=== PATIENT | female | born 1990 | race African-American/Black ===

== ENCOUNTER 2016-08-13 11:05 | Inpatient (IN) | payer OTHER ==
[2016-08-13] MEDS ORDERED: PROMETHAZINE HCL 25 MG/1 ML VIAL IVPB ONE ×2 (11:35→16:15)
[2016-08-13] MEDS ORDERED: DEXTROSE 5%-LACTATED RINGERS 1,000 ML IV SCH (11:35)
[2016-08-13] MEDS ORDERED: BUTORPHANOL TARTRATE 1 MG/ML VIAL IVPB ONE ×4 (11:35→16:15)
[2016-08-13 12:35] LABS: URINE APPEARANCE CLEAR; URINE BILIRUBIN NEGATIVE (NEGATIVE); URINE BLOOD NEGATIVE (NEGATIVE); URINE COLOR LTYELLOW; URINE GLUCOSE (UA) NEGATIVE (NEGATIVE); URINE KETONE NEGATIVE (NEGATIVE); URINE NITRITE NEGATIVE (NEGATIVE); URINE PROTEIN NEGATIVE (NEGATIVE); URINE UROBILINOGEN NEGATIVE E.U./dl (0.2-1.0)
[2016-08-13 12:37] LABS: URINE LEUK ESTERASE 2+ (NEGATIVE)
[2016-08-13 12:38] LABS: URINE BACTERIA RARE /hpf (NONE SEEN); URINE RBC 2 /hpf (0-3); URINE WBC 12 /hpf (3-5)
[2016-08-13 12:51] LABS: URINE MARIJUANA THC NEGATIVE ng/ml (CUTOFF=50)
[2016-08-13 12:53] LABS: BASOPHIL 1.1 % (0-2.0); EOSINOPHIL 4.2 % (0-4.5); MCH 30.4 pg (25.7-33.7); MEAN CELL VOLUME 89.6 fl (80-96); MEAN PLT VOLUME 8.2 fl (7.5-11.1); NEUTROPHILS 72.2 % (42.8-82.8); PLATELET COUNT 188 K/MM3 (134-434); RDW 13.1 % (11.6-15.6); WHITE BLOOD COUNT 6.4 K/mm3 (4.0-10.0)
[2016-08-13 13:07] VITALS: BMI 26.0
[2016-08-13 13:20] LABS: ALBUMIN 2.5 g/dl (3.4-5.0); ALK PHOS 182 U/L (45-117); ANION GAP 12 (8-16); BILIRUBIN,TOTAL 0.4 mg/dL (0.2-1.0); CALCIUM 8.3 mg/dL (8.5-10.1); CO2 23 mmol/L (21-32); CREATININE 0.7 mg/dL (0.55-1.02); GLUCOSE,RANDOM 66 mg/dL (74-106); SGOT/AST 21 U/L (15-37); SGPT/ALT 14 U/L (12-78); TOT PROT 5.9 g/dl (6.4-8.2)
[2016-08-13 13:24] LABS: INR 0.94 (0.82-1.09); PROTHROMBIN TIME (PATIENT) 10.3 SEC (9.98-11.88)
[2016-08-13 13:27] LABS: ACTIVATED PTT 28.7 SECONDS (26.9-34.4)
[2016-08-13] MEDS ORDERED: TUBERCULIN PPD 5 TU/0.1ML SYRINGE (IN PATIENT USE ONLY) ID ONE (14:00)
[2016-08-13 14:03] LABS: HIV 1 & 2 AB NEGATIVE; HIV 1 AGp24 NEGATIVE
[2016-08-13] MEDS: D5W-LR W/ 20 UNITS OXYTOCIN 1,000 ML IV SCH (20:20)
--- NOTE | 2016-08-13 21:12 | PN ---
Delivery - Delivery Vaginal Delivery: Spontaneous Type of Anesthesia: Local Episiotomy/Laceration: 1st degree EBL (cc): 500 Delivery, Single - Feeding Plan Initial Plan: Elected not to breastfeed exclusively throughout hospitalization Remarks - Remarks Remarks: Few minutes after artificial rupture of membrane, while anesthesiologist was being called for epidural anesthesia, Boyfriend who was in the room with patient called for help because patient felt like pushing. The L&D staff immediately went to the room; baby's head wad delivered. then proceed with delivery of the body of a live girl over first degree labial laceration. Nose / Oropharynx suctioned @ perineum. Cord clamped and cut. Placenta expelled spontaneously intact. Attempt to repair labial laceration failed since patient was jumping up the bed every time she was touched. Since there was no bleeding, decision made to hold on suturing.
--- NOTE | 2016-08-13 21:31 | HP ---
Past Medical History - Admission Chief Complaint: Labor pain History of Present Illness: 26 yo @ 40.0 weeks gestation, EDC 08/06/16, brought to L&D due to labor pain. Patient has been diagnosed in the past with Schizoprenia, PTSD, depression and Asthma. She has h/o drug use. Upon admission she was 2 cm dilated. History Source: Patient Limitations to Obtaining History: Uncooperative - Past Medical History Pulmonary: Yes: Asthma ...: 9 ...Para: 1 ...Term: 0 ...: 1 ...Spon : 7 ...Induced : 0 ...Multiple Gestation: 0 ... Weeks Gestation by Dates: 41.0 ...EDC by Dates: 08/06/16 Psych: Yes: Bipolar - Past Surgical History Past Surgical History: Yes: None Hx Myomectomy: No Hx Transabdominal Cerclage: No - Smoking History Smoking history: Current every day smoker Have you smoked in the past 12 months: Yes Aproximately how many cigarettes per day: 10 - Alcohol/Substance Use Hx Alcohol Use: No History of Substance Use: reports: Cocaine, Marijuana - Social History Usual Living Arrangement: Yes: With Significant Other ADL: Independent History of Recent Travel: No Home Medications - Allergies Allergies/Adverse Reactions: Allergies Allergy/AdvReac Type Severity Reaction Status Date / Time peanut Allergy Severe Difficulty Verified 07/20/16 00:45 Breathing - Home Medications Home Medications: Ambulatory Orders Albuterol Sulfate Inhaler - [Ventolin Hfa Inhaler -] 2 inh PO Q4H PRN 08/13/16 Family Disease History - Family Disease History Family History: Unremarkable Family Disease History: Diabetes: Mother (COPD/schizophrenia), Respiratory: Mother, Other: Mother Review of Systems - Review of Systems Constitutional: reports: No Symptoms Eyes: reports: No Symptoms HENT: reports: No Symptoms Neck: reports: No Symptoms Cardiovascular: reports: No Symptoms Respiratory: reports: No Symptoms Gastrointestinal: reports: No Symptoms Genitourinary: reports: Pain Breasts: reports: No Symptoms Reported Musculoskeletal: reports: No Symptoms Integumentary: reports: No Symptoms Endocrine: reports: No Symptoms Hematology/Lymphatic: reports: No Symptoms Psychiatric: reports: Depression Pain Intensity: 8 Physical Exam - Maternity Vital Signs: Vital Signs Temperature 97.6 F 08/13/16 16:00 Pulse Rate 88 08/13/16 19:00 Respiratory Rate 20 08/13/16 19:00 Blood Pressure 137/90 08/13/16 19:00 O2 Sat by Pulse Oximetry (%) Constitutional: Yes: Well Nourished Eyes: Yes: Conjunctiva Clear HENT: Yes: Atraumatic Neck: Yes: Supple Cardiovascular: Yes: Regular Rate and Rhythm Lungs: Clear to auscultation - Abdominal Exam/OB Number of Fetuses: Single Presentation: Vertex - Vaginal Exam/OB Dilatation (cm): 2 Presentation: Vertex/Position Station: -3 - Physical Exam Psychiatric: Yes: Alert, Oriented - Labs Lab Results: CBC, BMP 08/13/16 12:00 08/13/16 12:00 Assessment/Plan Active labor Personal h/o Psychosis and drug abuse Admit to L&D Pitocin augmentation Anticipate
[2016-08-13] MEDS: ACETAMINOPHEN 325 MG TABLET (FP) PO PRN (23:20)
[2016-08-13] MEDS: IBUPROFEN 600 MG TABLET (FP) PO PRN (23:20)
[2016-08-13] MEDS ORDERED: BENZOCAINE 28 GM HEMORRHOIDAL OINTMENT TP PRN (23:34)
[2016-08-13] MEDS ORDERED: WITCH HAZEL 50% (TUCKS) 40 PAD/JAR PAD TP PRN (23:34)
[2016-08-13] MEDS ORDERED: BISACODYL 10 MG SUPP.RECT RC PRN (23:34)
[2016-08-13] MEDS ORDERED: METHYLERGONOVINE MALEATE 0.2 MG/1 ML AMP IM PRN (23:34)
[2016-08-13] MEDS ORDERED: BENZOCAINE 20% 57 GM BOTTLE TP PRN (23:34)
[2016-08-14] MEDS: IBUPROFEN 600 MG TABLET (FP) PO PRN ×3 (07:53→22:22)
[2016-08-14] MEDS: ACETAMINOPHEN 325 MG TABLET (FP) PO PRN ×3 (07:54→22:23)
--- NOTE | 2016-08-14 08:18 | PN ---
Post Progress Note - Subjective Subjective: 26 yo status post vaginal delivery seen and evaluated. She's calm today. Post Day: 1 Type of Delivery: Vital Signs: Vital Signs Temperature 98.6 F 08/14/16 02:00 Pulse Rate 80 08/14/16 06:00 Respiratory Rate 20 08/14/16 06:00 Blood Pressure 124/80 08/14/16 06:00 O2 Sat by Pulse Oximetry (%) 97 08/13/16 21:30 Breast Exam: Yes: Soft Uterus: Yes: Fundus Firm Abdomen/GI: Yes: Abdomen soft Lochia: Yes: Rubra Lochia, amount: Moderate Extremities: Yes: Calves non-tender Perineum: Yes: Laceration (Healing wound) Activity: Other (She's lying in bed) - Labs Labs: CBC WBC 6.4 K/mm3 (4.0-10.0) D 08/13/16 12:00 RBC 3.02 M/mm3 (3.60-5.2) L D 08/13/16 12:00 Hgb 9.2 GM/dL (10.7-15.3) L D 08/13/16 12:00 Hct 27.1 % (32.4-45.2) L D 08/13/16 12:00 MCV 89.6 fl (80-96) 08/13/16 12:00 MCHC 34.0 g/dl (32.0-36.0) 08/13/16 12:00 RDW 13.1 % (11.6-15.6) 08/13/16 12:00 Plt Count 188 K/MM3 (134-434) 08/13/16 12:00 MPV 8.2 fl (7.5-11.1) 08/13/16 12:00 Neutrophils % 72.2 % (42.8-82.8) 08/13/16 12:00 Lymphocytes % 16.4 % (8-40) 08/13/16 12:00 Monocytes % 6.1 % (3.8-10.2) 08/13/16 12:00 Eosinophils % 4.2 % (0-4.5) 08/13/16 12:00 Basophils % 1.1 % (0-2.0) 08/13/16 12:00 Assessment/Plan Status post vaginal delivery Personal h/o mental illness Personal h/o substance abuse Continue care and close monitoring Psychiatry consult
[2016-08-14 10:52] LABS: BASOPHIL 0.4 % (0-2.0); EOSINOPHIL 3.1 % (0-4.5); MCH 30.4 pg (25.7-33.7); MCHC 33.8 g/dl (32.0-36.0); MEAN CELL VOLUME 89.8 fl (80-96); NEUTROPHILS 71.6 % (42.8-82.8); PLATELET COUNT 174 K/MM3 (134-434); WHITE BLOOD COUNT 8.6 K/mm3 (4.0-10.0)
--- NOTE | 2016-08-14 14:45 | CON.PSY ---
Psychiatry Consult Chief Complaint: Patient seen for psych evaluation, patient is giving conflicting info regarding her Psych Illness. - Previous Psychiatric Treatment Outpatient: More than 6 mos ago Inpatient: One prior admission - Previous Substance Abuse Treatment Outpatient: None - Reason for Previous Treatment Reason for Previous Treatment: Biploar Illness, Psychotic Episode, Drug Abuse - Current Medications Current Medications: Active Medications Acetaminophen (Tylenol -) 650 mg PO Q3H PRN Last Admin: 08/14/16 07:54 Dose: 650 mg Benzocaine (Americaine Ointment -) 1 applic TP PRN PRN Benzocaine (Americaine 20% Newell -) 1 spray TP PRN PRN Last Admin: 08/14/16 07:55 Dose: 1 spray Bisacodyl (Dulcolax Suppository -) 10 mg RC PRN PRN Dextrose/Lactated Ringer's (D5-Lr -) 1,000 mls @ 125 mls/hr IV ASDIR ROM Dextrose/Lactated Ringer's (Pitocin 20 Units In D5-Lr -) 1,000 mls @ 125 mls/ hr IV ASDIR ROM Last Admin: 08/13/16 20:20 Dose: 125 mls/hr Ibuprofen (Motrin -) 600 mg PO Q4H PRN Last Admin: 08/14/16 07:53 Dose: 600 mg Methylergonovine Maleate (Methergine Injection -) 0.2 mg IM Q4H PRN PRN Reason: EXCESSIVE BLEEDING Senna/Docusate Sodium (Pericolace -) 2 tablet PO HS PRN Witch Rere/Glycerin (Tucks Pads -) 1 pad TP PRN PRN Last Admin: 08/14/16 07:55 Dose: 1 canister - Allergies Allergies: Allergies Allergy/AdvReac Type Severity Reaction Status Date / Time peanut Allergy Severe Difficulty Verified 07/20/16 00:45 Breathing - Current Living Status Usual Living Arrangement: Alone - Current Mental Status Evaluation Appearance: Well Groomed Attitude: Cooperative - Affect Affect: Constrictive Appropriateness: Appropriate to Content - Mood Mood: Euthymic - Speech/Language Expressive: Coherent - Psychomotor Activity Psychomotor Activity: Normal - Thought Process Thought Process: Intact - Thought Content Hallucinations: Absent Delusions: Absent - Self Perception Self Perception: No Impairment - Cognition Attention: Alert Orientation: Time Memory, Immediate Recall: Intact Memory, Short Term: 3/3 Memory, Remote with Promptin/3 - Concentration Serial Sevens Intact: No Simple Calculations Intact: No - Abstraction Proverb Interpretation: Intact Judgement: Minimally Impaired - Insight Insight: Intact - Impulse Control Impulse Control: Good Control - Suicidal Ideation Suicidal Ideation: No - Homicidal Ideation Homicidal Ideation: No Assessment/Plan 1)Patient can see her baby unsupervised. Does not have any suicidal or Homicidal ideas at this tiome. 2) CPS to evaluate for placement of the baby. 3) Will seek Psych follow up ay [facility].
[2016-08-14] MEDS ORDERED: SENNOSIDES/DOCUSATE COMBO (SENNA PLUS) TABLET (UD) PO PRN (23:34)
[2016-08-15] MEDS: DEXTROSE 5%-LACTATED RINGERS 1,000 ML IV SCH ×2 (00:10→22:17)
[2016-08-15] MEDS: D5W-LR W/ 20 UNITS OXYTOCIN 1,000 ML IV SCH (00:10)
[2016-08-15] MEDS: ACETAMINOPHEN 325 MG TABLET (FP) PO PRN ×2 (07:31→20:42)
[2016-08-15] MEDS: IBUPROFEN 600 MG TABLET (FP) PO PRN ×2 (07:32→20:43)
--- NOTE | 2016-08-15 08:15 | PN ---
Post Progress Note - Subjective Subjective: 26 yo with h/o mental disorder, status post vaginal delivery, seen and evaluated.. She appears to be doing well. She denies any suicidal nor homocidal thought. She was seen by Psychiatrist for evaluation. Post Day: 2 Type of Delivery: Vital Signs: Vital Signs Temperature 98.9 F 08/14/16 21:23 Pulse Rate 84 08/14/16 21:23 Respiratory Rate 18 08/14/16 21:23 Blood Pressure 139/91 08/14/16 21:23 O2 Sat by Pulse Oximetry (%) 97 08/13/16 21:30 Breast Exam: Yes: Soft Uterus: Yes: Fundus Firm Abdomen/GI: Yes: Abdomen soft, Tolerating PO Lochia: Yes: Rubra Lochia, amount: Small Extremities: Yes: Calves non-tender Perineum: Yes: Laceration (Healing wound) Activity: Ambulating - Labs Labs: CBC WBC 8.6 K/mm3 (4.0-10.0) D 08/14/16 10:10 RBC 2.66 M/mm3 (3.60-5.2) L 08/14/16 10:10 Hgb 8.1 GM/dL (10.7-15.3) L D 08/14/16 10:10 Hct 23.9 % (32.4-45.2) L 08/14/16 10:10 MCV 89.8 fl (80-96) 08/14/16 10:10 MCHC 33.8 g/dl (32.0-36.0) 08/14/16 10:10 RDW 13.0 % (11.6-15.6) 08/14/16 10:10 Plt Count 174 K/MM3 (134-434) 08/14/16 10:10 MPV 8.0 fl (7.5-11.1) 08/14/16 10:10 Neutrophils % 71.6 % (42.8-82.8) 08/14/16 10:10 Lymphocytes % 19.8 % (8-40) D 08/14/16 10:10 Monocytes % 5.1 % (3.8-10.2) 08/14/16 10:10 Eosinophils % 3.1 % (0-4.5) 08/14/16 10:10 Basophils % 0.4 % (0-2.0) 08/14/16 10:10 Assessment/Plan Status post vaginal delivery Personal history of mental disorder. Phichichiatry consult reviewed CPS to evaluate for placement of baby Social service consult Discharge pending
--- NOTE | 2016-08-16 07:52 | PN ---
Post Progress Note - Subjective Subjective: 26 yo with mental illness and substance abuse, status post vaginal delivery, seen and evaluated. She appears to do well. She was cleared by Psychiatrist. Post Day: 2 Type of Delivery: Vital Signs: Vital Signs Temperature 98.7 F 08/15/16 22:00 Pulse Rate 91 H 08/15/16 22:00 Respiratory Rate 18 08/15/16 22:00 Blood Pressure 138/84 08/15/16 22:00 O2 Sat by Pulse Oximetry (%) 97 08/13/16 21:30 Breast Exam: Yes: Soft Uterus: Yes: Fundus Firm Abdomen/GI: Yes: Abdomen soft, Tolerating PO Lochia: Yes: Rubra Lochia, amount: Moderate Extremities: Yes: Calves non-tender Perineum: Yes: Laceration (Healing) Activity: Ambulating - Labs Labs: CBC WBC 8.6 K/mm3 (4.0-10.0) D 08/14/16 10:10 RBC 2.66 M/mm3 (3.60-5.2) L 08/14/16 10:10 Hgb 8.1 GM/dL (10.7-15.3) L D 08/14/16 10:10 Hct 23.9 % (32.4-45.2) L 08/14/16 10:10 MCV 89.8 fl (80-96) 08/14/16 10:10 MCHC 33.8 g/dl (32.0-36.0) 08/14/16 10:10 RDW 13.0 % (11.6-15.6) 08/14/16 10:10 Plt Count 174 K/MM3 (134-434) 08/14/16 10:10 MPV 8.0 fl (7.5-11.1) 08/14/16 10:10 Neutrophils % 71.6 % (42.8-82.8) 08/14/16 10:10 Lymphocytes % 19.8 % (8-40) D 08/14/16 10:10 Monocytes % 5.1 % (3.8-10.2) 08/14/16 10:10 Eosinophils % 3.1 % (0-4.5) 08/14/16 10:10 Basophils % 0.4 % (0-2.0) 08/14/16 10:10 Assessment/Plan Status post vaginal delivery Personal history of mental disorder. Cleared by Psychiatrist CPS to evaluate for placement of baby Social service consult Patient may be discharge
--- NOTE | 2016-08-16 07:57 | DS ---
Physical Exam-DOUBLE END SEWER Vital Signs: Vital Signs Temperature 98.7 F 08/15/16 22:00 Pulse Rate 91 H 08/15/16 22:00 Respiratory Rate 18 08/15/16 22:00 Blood Pressure 138/84 08/15/16 22:00 O2 Sat by Pulse Oximetry (%) 97 08/13/16 21:30 Constitutional: Yes: Well Nourished Eyes: Yes: Conjunctiva Clear HENT: Yes: Atraumatic Neck: Yes: Supple, Trachea Midline Cardiovascular: Yes: Regular Rate and Rhythm Respiratory: Yes: Regular, CTA Bilaterally Gastrointestinal: Yes: Normal Bowel Sounds Pelvis: Yes: WNL Vaginal Exam: Yes: Normal Cervix: Yes: Normal Uterus: Yes: Normal ....Post : Yes: Uterus firm, Slight lochia rubra Breast(s): Yes: WNL Neurological: Yes: Alert, Oriented ...Motor Strength: WNL Psychiatric: Yes: Alert, Oriented Labs: CBC, BMP 08/14/16 10:10 08/13/16 12:00 Delivery - Delivery Vaginal Delivery: Spontaneous Type of Anesthesia: None Episiotomy/Laceration: 1st degree EBL (cc): 500 Delivery, Single - Stages of Labor Date 1st Stage Initiatied: 08/13/16 Time 1st Stage Initiated: 12:05 Date 2nd Stage Initiated: 08/13/16 Time 2nd Stage Initiated: 19:55 Date of Delivery: 08/13/16 Time of Delivery: 20:17 Time Placenta Delivered: 20:25 - Condition of Infant [employer]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 Condition: Fair - Instructions Diet, Activity, Other Instructions: Regular diet No douching, no sexual intercourse x 6 weeks F/U in clinic in 6 weeks Disposition: HOME - Home Medications Comprehensive Discharge Medication List: Ambulatory Orders Albuterol Sulfate Inhaler - [Ventolin Hfa Inhaler -] 2 inh PO Q4H PRN 08/13/16
[2016-08-16] MEDS: IBUPROFEN 600 MG TABLET (FP) PO PRN ×2 (08:50→12:39)
[2016-08-16] MEDS: ACETAMINOPHEN 325 MG TABLET (FP) PO PRN ×2 (08:51→12:38)
[2016-08-16 13:54] VITALS: BP 134/91; PULSE 78; TEMP 98.9
== END 2016-08-16 13:40 | disposition home or self-care (01) | DRG 560 ==
LOC: JDEL 11:05 → JLDR 11:35 → J3W 08-14 07:46
PROVIDERS: ADMIT Obstetrics & Gynecology; ATTEND Obstetrics & Gynecology
PROC: 10E0XZZ Delivery of Products of Conception, External Approach (ICD-10-PCS; principal; 2016-08-13)
DX: O70.0 First degree perineal laceration during delivery (principal); O99.334 Smoking (tobacco) complicating childbirth; F17.210 Nicotine dependence, cigarettes, uncomplicated; O99.324 Drug use complicating childbirth; F14.90 Cocaine use, unspecified, uncomplicated; F11.90 Opioid use, unspecified, uncomplicated; Z3A.40 40 weeks gestation of pregnancy; Z37.0 Single live birth; O75.89 Other specified complications of labor and delivery; F20.9 Schizophrenia, unspecified; F31.9 Bipolar disorder, unspecified; J45.909 Unspecified asthma, uncomplicated; F43.10 Post-traumatic stress disorder, unspecified
CPT/HCPCS: 36415; 59409; 80053; 80307; 81003; 81015; 85025; 85610; 85730; 86593; 86762; 86850; 86900; 86901; 87340; 87389

== ENCOUNTER 2016-09-30 17:23 | Inpatient (IN) | payer OTHER ==
[2016-09-30 18:24] VITALS: BMI 23.4
--- NOTE | 2016-09-30 18:44 | HP ---
Admission ROS [facility] - [facility] Chief Complaint: i am here rehab from cocaine,alcohol,marijuana and heroin,never been in detox before,last treatment rehab 11/14/15 to 11/15/15 not completed seizure last 2 months from hypoglycemia ptsd,bipolar disorder nicotine dependence 30 cigarette need help to stop in controlled environment Allergies/Adverse Reactions: Allergies Allergy/AdvReac Type Severity Reaction Status Date / Time peanut Allergy Severe Difficulty Verified 09/30/16 18:33 Breathing nuts Allergy Uncoded 09/30/16 18:51 History of Present Illness: this 26 years old black female patient with alcohol,cocaine and marijuana dependence,seeking rehab Exam Limitations: No Limitations - Ebola screening Have you traveled outside of the country in the last 21 days: No Have you had contact with anyone from an Ebola affected area: No Have you been sick,other than usual withdrawal symptoms: No Do you have a fever: No - Review of Systems Constitutional: No Symptoms Reported EENT: reports: No Symptoms Reported Respiratory: reports: No Symptoms reported Cardiac: reports: No Symptoms Reported GI: reports: No Symptoms Reported : reports: No Symptoms Reported Musculoskeletal: reports: No Symptoms Reported Integumentary: reports: No Symptoms Reported Neuro: reports: No Symptoms reported Endocrine: reports: No Symptoms Reported Hematology: reports: No Symptoms Reported Psychiatric: reports: other (bipolar disorder) Patient History - Patient Medical History Hx Anemia: Yes Hx Asthma: Yes (last attack 2 days ago) Hx Chronic Obstructive Pulmonary Disease (COPD): No Hx Cancer: No Hx Cardiac Disorders: No Hx Congestive Heart Failure: No Hx Hypertension: No Hx Hypercholesterolemia: No Hx Pacemaker: No HX Cerebrovascular Accident: No Hx Seizures: No Hx Dementia: No Hx Diabetes: No Hx Gastrointestinal Disorders: Yes (GERD) Hx Liver Disease: No Hx Genitourinary Disorders: Yes ( genital herpes,last medication 6 months ago) Hx Sexually Transmitted Disorders: Yes Hx Renal Disease (ESRD): No Hx Thyroid Disease: No Hx Human Immunodeficiency Virus (HIV): No Hx Hepatitis C: No Hx Depression: No Hx Suicide Attempt: Yes (hang self at age 16) Hx Bipolar Disorder: Yes Hx Schizophrenia: No Other Medical History: no suicidal,no homicidal - Patient Surgical History Past Surgical History: No Hx Neurologic Surgery: No Hx Cataract Extraction: No Hx Cardiac Surgery: No Hx Lung Surgery: No Hx Breast Surgery: No Hx Breast Biopsy: No Hx Abdominal Surgery: No Hx Appendectomy: No Hx Cholecystectomy: No Hx Genitourinary Surgery: No Hx Section: No Hx Orthopedic Surgery: No Anesthesia Reaction: No - PPD History Previous Implant?: Yes Documented Results: Negative w/proof Date: 11/16/15 PPD to be Administered?: No - Reproductive History Patient is a Female of Child Bearing Age (11 -55 yrs old): Yes Last Menstrual Period: 09/10/15 Patient : No - Smoking Cessation Smoking history: Current every day smoker Have you smoked in the past 12 months: Yes Aproximately how many cigarettes per day: 30 Hx Chewing Tobacco Use: No Initiated information on smoking cessation: Yes 'Breaking Loose' booklet given: 09/30/16 - Substance & Tx. History Hx Alcohol Use: Yes Hx Substance Use: Yes Substance Use Type: Alcohol, Cocaine, Marijuana, Opiates Hx Substance Use Treatment: No - Substances Abused Alcohol Route: Oral Frequency: 3-6 times per week Amount used: 1 pint of liquor Age of first use: 16 Date of Last Use: 09/29/16 Cocaine Route: Smoking Frequency: Daily Amount used: 700$ Age of first use: 16 Date of Last Use: 09/30/16 Marijuana/Hashish Route: Smoking Frequency: Daily Amount used: 60$ Age of first use: 14 Date of Last Use: 09/30/16 Heroin Route: Inhalation Frequency: 1-2 times per week Amount used: 3 bags Age of first use: 20 Date of Last Use: 09/27/16 Family Disease History - Family Disease History Family Disease History: Diabetes: Mother (COPD/schizophrenia), Respiratory: Mother, Other: Mother Admission Physical Exam [facility] - Vital Signs Vital Signs: Vital Signs - 24 hr 09/30/16 18:21 Temperature 98.3 F Pulse Rate 90 Respiratory 18 Rate Blood Pressure 115/65 - Physical General Appearance: Yes: Within Normal Limits HEENTM: Yes: Within Normal Limits, CHADD, Pharynx Normal Respiratory: Yes: Lungs Clear, Normal Breath Sounds, No Respiratory Distress Neck: Yes: Within Normal Limits Breast: Yes: Breast Exam Deferred Cardiology: Yes: Within Normal Limits, Regular Rhythm, Regular Rate, S1, S2 Abdominal: Yes: Within Normal Limits, Normal Bowel Sounds, Non Tender, Soft Genitourinary: Yes: Within Normal Limits Back: Yes: Within Normal Limits Extremities: Yes: Within Normal Limits Neurological: Yes: Within Normal Limits, purchase order checker II-XII NML intact, Fully Oriented, Alert, Motor Strength 5/5 Integumentary: Yes: Within Normal Limits Lymphatic: Yes: Within Normal Limits - Diagnostic (1) Alcohol dependence Current Visit: Yes Status: Acute (2) Bipolar disorder Current Visit: Yes Status: Acute (3) Heroin abuse Current Visit: Yes Status: Acute (4) PTSD (post-traumatic stress disorder) Current Visit: Yes Status: Acute (5) Cocaine dependence Current Visit: No Status: Acute Qualifiers: Substance use status: uncomplicated Qualified Code(s): F14.20 - Cocaine dependence, uncomplicated (6) Asthma Current Visit: No Status: Chronic (7) Bipolar I disorder with anxious distress Current Visit: No Status: Chronic (8) GERD (gastroesophageal reflux disease) Current Visit: No Status: Chronic Qualifiers: Esophagitis presence: without esophagitis Qualified Code(s): K21.9 - Gastro-esophageal reflux disease without esophagitis (9) Marijuana dependence Current Visit: No Status: Acute Cleared for Admission [facility] - Detox or Rehab Claeared for Rehab Admission: Yes [facility] Breath Alcohol Content Breath Alcohol Content: 0 Urine Pregancy Test - Result Urine Test Results: Negative- NO Line Present Urine Drug Screen - Results Drug Screen Negative: No Urine Drug Screen Results: THC-Marijuana, RIANA-Cocaine, BZO-Benzodiazepines
--- NOTE | 2016-09-30 19:02 | HP ---
Admission [facility] Allergies/Adverse Reactions: Allergies Allergy/AdvReac Type Severity Reaction Status Date / Time peanut Allergy Severe Difficulty Verified 09/30/16 18:33 Breathing nuts Allergy Uncoded 09/30/16 18:51 - Ebola screening Have you traveled outside of the country in the last 21 days: No Have you had contact with anyone from an Ebola affected area: No Have you been sick,other than usual withdrawal symptoms: No Do you have a fever: No Patient History - Patient Medical History Hx Anemia: Yes Hx Asthma: Yes (last attack 2 days ago) Hx Chronic Obstructive Pulmonary Disease (COPD): No Hx Cancer: No Hx Cardiac Disorders: No Hx Congestive Heart Failure: No Hx Hypertension: No Hx Hypercholesterolemia: No Hx Pacemaker: No HX Cerebrovascular Accident: No Hx Seizures: No Hx Dementia: No Hx Diabetes: No Hx Gastrointestinal Disorders: Yes (GERD) Hx Liver Disease: No Hx Genitourinary Disorders: Yes ( genital herpes,last medication 6 months ago) Hx Sexually Transmitted Disorders: Yes Hx Renal Disease (ESRD): No Hx Thyroid Disease: No Hx Human Immunodeficiency Virus (HIV): No Hx Hepatitis C: No Hx Depression: No Hx Suicide Attempt: Yes (hang self at age 16) Hx Bipolar Disorder: Yes Hx Schizophrenia: No Other Medical History: no suicidal,no homicidal - Patient Surgical History Past Surgical History: No Hx Neurologic Surgery: No Hx Cataract Extraction: No Hx Cardiac Surgery: No Hx Lung Surgery: No Hx Breast Surgery: No Hx Breast Biopsy: No Hx Abdominal Surgery: No Hx Appendectomy: No Hx Cholecystectomy: No Hx Genitourinary Surgery: No Hx Section: No Hx Orthopedic Surgery: No Anesthesia Reaction: No - PPD History Previous Implant?: Yes Documented Results: Negative w/proof Date: 11/16/15 - Reproductive History Last Menstrual Period: 09/10/15 Patient : No - Smoking Cessation Smoking history: Current every day smoker Have you smoked in the past 12 months: Yes Aproximately how many cigarettes per day: 30 Hx Chewing Tobacco Use: No Initiated information on smoking cessation: Yes - Substances Abused Alcohol Route: Oral Frequency: 3-6 times per week Amount used: 1 pint of liquor Age of first use: 16 Date of Last Use: 09/29/16 Cocaine Route: Smoking Frequency: Daily Amount used: 700$ Age of first use: 16 Date of Last Use: 09/30/16 Marijuana/Hashish Route: Smoking Frequency: Daily Amount used: 60$ Age of first use: 14 Date of Last Use: 09/30/16 Heroin Route: Inhalation Frequency: 1-2 times per week Amount used: 3 bags Age of first use: 20 Date of Last Use: 09/27/16 Family Disease History - Family Disease History Family Disease History: Diabetes: Mother (COPD/schizophrenia), Respiratory: Mother, Other: Mother Admission Physical Exam [facility] - Vital Signs Vital Signs: Vital Signs - 24 hr 09/30/16 18:21 Temperature 98.3 F Pulse Rate 90 Respiratory 18 Rate Blood Pressure 115/65 - Physical General Appearance: Yes: Within Normal Limits HEENTM: Yes: Within Normal Limits, Hearing grossly Normal, Normal ENT Inspection , Normal Voice, CHADD, Pharynx Normal Respiratory: Yes: Lungs Clear, Normal Breath Sounds, No Respiratory Distress Neck: Yes: Within Normal Limits, Supple, Trachea in good position Breast: Yes: Breast Exam Deferred Cardiology: Yes: Within Normal Limits, Regular Rhythm, Regular Rate, S1, S2 Abdominal: Yes: Within Normal Limits, Normal Bowel Sounds, Non Tender, Flat, Soft Genitourinary: Yes: Within Normal Limits Back: Yes: Within Normal Limits Musculoskeletal: Yes: Within Normal Limits, full range of Motion Extremities: Yes: Within Normal Limits, Normal Inspection, Normal Range of Motion Neurological: Yes: assistant store leader II-XII NML intact, Alert, Motor Strength 5/5 Integumentary: Yes: Within Normal Limits Lymphatic: Yes: Within Normal Limits - Diagnostic (1) Alcohol dependence Current Visit: Yes Status: Acute (2) Marijuana dependence Current Visit: No Status: Acute (3) Nicotine dependence Current Visit: No Status: Acute Qualifiers: Nicotine product type: cigarettes Substance use status: uncomplicated Qualified Code(s): F17.210 - Nicotine dependence, cigarettes, uncomplicated (4) Cocaine dependence Current Visit: No Status: Acute Qualifiers: Substance use status: uncomplicated Qualified Code(s): F14.20 - Cocaine dependence, uncomplicated (5) Depression Current Visit: No Status: Acute (6) Asthma Current Visit: No Status: Chronic (7) Bipolar I disorder with anxious distress Current Visit: No Status: Chronic (8) GERD (gastroesophageal reflux disease) Current Visit: No Status: Chronic Qualifiers: Esophagitis presence: without esophagitis Qualified Code(s): K21.9 - Gastro-esophageal reflux disease without esophagitis (9) Heroin abuse Current Visit: Yes Status: Acute (10) Bipolar disorder Current Visit: Yes Status: Acute (11) PTSD (post-traumatic stress disorder) Current Visit: Yes Status: Acute Cleared for Admission [facility] - Detox or Rehab Claeared for Rehab Admission: Yes [facility] Breath Alcohol Content Breath Alcohol Content: 0 Urine Pregancy Test - Result Urine Test Results: Negative- NO Line Present Urine Drug Screen - Results Drug Screen Negative: No Urine Drug Screen Results: THC-Marijuana, RIANA-Cocaine, BZO-Benzodiazepines
[2016-09-30] MEDS ORDERED: IBUPROFEN 400 MG TABLET (FP) PO PRN (19:07)
[2016-09-30] MEDS ORDERED: ACETAMINOPHEN 325 MG TABLET (FP) PO PRN (19:07)
[2016-09-30] MEDS ORDERED: hydrOXYzine PAMOATE 50 MG CAPSULE (FP) PO PRN (19:07)
[2016-09-30] MEDS ORDERED: MENTHOL/PHENOL 1 EACH UD MM PRN (19:07)
[2016-09-30] MEDS ORDERED: NICOTINE POLACRILEX 2 MG GUM BUC PRN (19:07)
[2016-09-30] MEDS ORDERED: P-EPHED 60MG/TRIPROLIDI 2.5MG TABLET PO PRN (19:07)
[2016-09-30] MEDS ORDERED: MAG HYDROX/AL HYDROX/SIMETH 30 ML UNIT-DOSE CUP PO PRN (19:07)
[2016-09-30] MEDS ORDERED: diphenhydrAMINE HCL 50 MG CAPSULE PO PRN (19:07)
[2016-09-30] MEDS ORDERED: MAGNESIUM CITRATE 300 ML BOTTLE PO PRN (19:07)
[2016-09-30] MEDS ORDERED: MAGNESIUM HYDROX 2400MG/30ML ORAL SUSPENSION 30 ML CUP PO PRN (19:07)
[2016-09-30] MEDS ORDERED: LOPERAMIDE HCL 2 MG CAPSULE PO PRN (19:07)
[2016-09-30] MEDS ORDERED: guaiFENesin/D-METHORPHAN HB 10 ML UNIT-DOSE CUPS PO PRN (19:07)
[2016-09-30] MEDS ORDERED: THIAMINE HCL 100 MG TABLET (FP) PO SCH (22:00)
[2016-09-30] MEDS: NICOTINE 21 MG/24 HOURS TOPICAL PATCH TD SCH (22:29)
[2016-10-01 02:00] LABS: URINE APPEARANCE CLEAR; URINE BILIRUBIN NEGATIVE (NEGATIVE); URINE BLOOD NEGATIVE (NEGATIVE); URINE COLOR YELLOW; URINE GLUCOSE (UA) NEGATIVE (NEGATIVE); URINE KETONE NEGATIVE (NEGATIVE); URINE NITRITE NEGATIVE (NEGATIVE); URINE PROTEIN NEGATIVE (NEGATIVE); URINE UROBILINOGEN NEGATIVE mg/dL (0.2-1.0)
[2016-10-01 02:03] LABS: URINE LEUK ESTERASE 1+ (NEGATIVE)
[2016-10-01 02:05] LABS: CALCIUM OXALATE CRYSTALS MODERATE /hpf (NONE SEEN); URINE BACTERIA RARE /hpf (NONE SEEN); URINE MUCUS FEW; URINE RBC 3 /hpf (0-3); URINE WBC 3 /hpf (3-5)
[2016-10-01] MEDS: NICOTINE 21 MG/24 HOURS TOPICAL PATCH TD SCH (09:44)
[2016-10-01] MEDS ORDERED: PRENATAL VITAMINS W/ FOLIC ACID TABLET (FP) PO SCH (10:00)
[2016-10-01 10:01] LABS: MCH 26.4 pg (25.7-33.7); MCHC 31.6 g/dl (32.0-36.0); MEAN CELL VOLUME 83.7 fl (80-96); PLATELET COUNT 251 K/MM3 (134-434)
[2016-10-01 10:03] LABS: ALBUMIN 3.1 g/dl (3.4-5.0); ALK PHOS 65 U/L (45-117); ANION GAP 5 (8-16); BILIRUBIN,TOTAL 0.2 mg/dL (0.2-1.0); CALCIUM 8.2 mg/dL (8.5-10.1); CO2 29 mmol/L (21-32); GLUCOSE,RANDOM 71 mg/dL (74-106); SGOT/AST 15 U/L (15-37); SGPT/ALT 13 U/L (12-78)
[2016-10-01 10:19] VITALS: BP 129/77; PULSE 75; TEMP 98.2
[2016-10-01] MEDS ORDERED: PT OWN MED DRAWER 7, Y5N ONE ×2 (10:29→15:43)
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
[2016-10-01 11:54] LABS: HIV 1 & 2 AB NEGATIVE; HIV 1 AGp24 NEGATIVE
[2016-10-01] MEDS ORDERED: COLLOIDAL OATMEAL 1 BAR EACH TP PRN (15:20)
[2016-10-01] MEDS ORDERED: valACYclovir HCL 500 MG TABLET (FP) PO SCH (22:00)
--- NOTE | 2016-10-01 23:44 | PN ---
[facility] Progress Note Note: RN MADE UTILITY GELATIN MAKER AWARE THAT THE PT. REQUESTED TO LEAVE AMA. UTILITY GELATIN MAKER MET WITH THE MEMBER AND SHE STATED SHE WANTED TO LEAVE BECAUSE HER TODDLER DAUGHTER CANNOT VISIT HER ON THE UNIT. SHE WAS ENCOURAGED TO COMPLETE TREATMENT AND EDUCATED THE DANGERS OF RELAPSING; PT. VERBALIZED UNDERSTANDING BUT WAS ADAMANT SHE WANTED TO LEAVE. SHE STATES SHE WANTS TO RETURN TO THE OUTPATIENT PROGRAM AT [facility] . REQUESTED MEDICATIONS SENT TO THE PHARMACY. NO SIGNS OF DISTRESS NOTED. Last Vital Signs Temp Pulse Resp BP Pulse Ox 98.2 F 75 18 129/77 10/01/16 09:10 10/01/16 09:10 10/01/16 09:10 10/01/16 09:10
--- NOTE | 2016-10-02 08:16 | EKG ---
Test Reason : Blood Pressure : / mmHG Vent. Rate : 075 BPM Atrial Rate : 075 BPM P-R Int : 168 ms QRS Dur : 096 ms QT Int : 428 ms P-R-T Axes : 055 045 085 degrees QTc Int : 477 ms SINUS RHYTHM WITH MARKED SINUS ARRHYTHMIA T WAVE ABNORMALITY, CONSIDER ANTEROLATERAL ISCHEMIA PROLONGED QT ABNORMAL ECG NO PREVIOUS ECGS AVAILABLE Confirmed by ROBERT GIRALDO MD ([id number]) on 10/02/2016 8:15:33 AM Referred By: Confirmed By:ROBERT GIRALDO MD
== END 2016-10-01 16:45 | disposition left against medical advice (07) | DRG 770 ==
LOC: YASAS 17:23 → Y3E 19:11
PROVIDERS: ADMIT Psychiatry & Neurology Psychiatry; ATTEND Psychiatry & Neurology Psychiatry
PROC: HZ42ZZZ Group Counseling for Substance Abuse Treatment, Cognitive-Behavioral (ICD-10-PCS; principal; 2016-09-30)
DX: F10.20 Alcohol dependence, uncomplicated (principal); F13.20 Sedative, hypnotic or anxiolytic dependence, uncomplicated; F11.10 Opioid abuse, uncomplicated; F14.20 Cocaine dependence, uncomplicated; F12.20 Cannabis dependence, uncomplicated; F17.210 Nicotine dependence, cigarettes, uncomplicated; F43.10 Post-traumatic stress disorder, unspecified; F31.89 Other bipolar disorder; F32.9 Major depressive disorder, single episode, unspecified; L30.9 Dermatitis, unspecified; K21.9 Gastro-esophageal reflux disease without esophagitis; J45.909 Unspecified asthma, uncomplicated; D64.9 Anemia, unspecified; Z87.42 Personal history of other diseases of the female genital tract; Z91.5 Personal history of self-harm
CPT/HCPCS: 36415; 80053; 81003; 81015; 85027; 86593; 87389; 93005; 93010

== ENCOUNTER 2017-09-15 23:54 | Emergency (ER) | payer OTHER ==
--- NOTE | 2017-09-16 00:03 | PDOC ---
History of Present Illness - General Stated Complaint: VAGINAL BLEEDING Time Seen by Provider: 09/16/17 00:03 - History of Present Illness Initial Comments: 27 year old [id number] with history of BPD, anxiety, epilepsy, and pre- eclampsia presenting with two weeks of vaginal bleeding (LMP 2 months prior) and seizure prodrome earlier today. States that she isn't sure when her LMP was but it was approximately 2 months prior. Over the past two weks she has noticed copious vaginal bleeding with clots and material that she was concerned was for miscarriage because she has had 9 in the past and is familiar with the character of that vaginal expulsion. Today she felt very week and happend to run out of her topiramte for her seizure disorders. Prior to arrival she experienced left leg weakness and numbness which is her typical prodrome. She did not seize and by arrival her symptoms ahd improved. She has had some headache and weakness. She denies nausea, vomiting, diarrhea, constipation, chest pain, SOB, or other symptoms 09/16/17 01:28 Past History - Past Medical History Allergies/Adverse Reactions: Allergies Allergy/AdvReac Type Severity Reaction Status Date / Time peanut Allergy Severe Difficulty Verified 09/16/17 00:03 Breathing nuts Allergy Uncoded 09/16/17 00:03 Home Medications: Ambulatory Orders Albuterol Sulfate Inhaler - [Ventolin Hfa Inhaler -] 2 inh PO Q4H PRN 08/13/16 Valacyclovir HCl [Valtrex -] 500 mg PO BID #14 tablet 10/01/16 Anemia: Yes Asthma: Yes (last attack 2 days ago) Cancer: No Cardiac Disorders: No CVA: No COPD: No CHF: No Dementia: No Diabetes: No GI Disorders: Yes (GERD) Disorders: Yes ( genital herpes,last medication 6 months ago) HTN: No Hypercholesterolemia: No Kidney Stones: No Liver Disease: No Seizures: No Thyroid Disease: No - Surgical History Abdominal Surgery: No Appendectomy: No Cardiac Surgery: No Cholecystectomy: No Lung Surgery: No Neurologic Surgery: No Orthopedic Surgery: No - Reproductive History (#): 1 Para: 9 PID: No Spontaneous : 8 - Immunization History Immunization Up to Date: Yes - Suicide/Smoking/Psychosocial Hx Smoking History: Current every day smoker Have you smoked in the past 12 months: Yes Number of Cigarettes Smoked Daily: 30 'Breaking Loose' booklet given: 09/30/16 Hx Alcohol Use: Yes (reports drinking since 12-13 yo,hard liquors,[place] ice tea.) Drug/Substance Use Hx: Yes (crack since 16 yo,heroin(sniffing) since 20 on and off,3 bags a week ) Substance Use Type: Alcohol, Cocaine, Heroin Hx Substance Use Treatment: Yes (left AMA this program in 2013) Review of Systems - Review of Systems Constitutional: No: Chills, Diaphoresis, Fever HEENTM: No: Blurred Vision, Tearing Respiratory: No: Orthopnea, Shortness of Breath Cardiac (ROS): No: Chest Pain, Lightheadedness, Syncope ABD/GI: No: Diarrhea, Nausea, Poor Appetite, Vomiting : No: Burning, Dysuria, Discharge Musculoskeletal: Yes: Muscle Pain, Muscle Weakness Integumentary: No: Bruising, Erythema, Flushing Neurological: Yes: Headache, Numbness, Paresthesia, Seizure, Weakness. No: Tingling, Tremors Psychiatric: Yes: Anxiety *Physical Exam - Physical Exam General Appearance: Yes: Nourished, Appropriately Dressed. No: Apparent Distress HEENT: positive: EOMI, CHADD, Normal ENT Inspection, Normal Voice Neck: positive: Trachea midline, Normal Thyroid, Supple. negative: Tender, Rigid Respiratory/Chest: positive: Lungs Clear, Normal Breath Sounds. negative: Chest Tender, Respiratory Distress, Accessory Muscle Use Cardiovascular: positive: Regular Rhythm, Regular Rate Female Pelvic Exam: positive: normal external exam, cervical os closed (But blood at external cervical os), normal adnexa, normal size ovaries. negative: adnexal tenderness Gastrointestinal/Abdominal: positive: Normal Bowel Sounds, Tender (bilateal lower quadrant tenderness), Flat, Soft Musculoskeletal: positive: Normal Inspection. negative: CVA Tenderness Extremity: positive: Normal Capillary Refill, Normal Inspection, Normal Range of Motion. negative: Tender Integumentary: positive: Normal Color, Dry, Warm Neurologic: positive: Fully Oriented, Alert, Normal Response, Motor Strength 5/ 5. negative: Normal Mood/Affect (slightly flat affect and overall does not seem to have good knowledge of hedr medical conditions or current condition) ED Treatment Course - LABORATORY CBC & Chemistry Diagram: 09/16/17 00:00 09/16/17 00:00 Medical Decision Making - Medical Decision Making 27 year old female with history of multiple abortions, seizure disorder, and psychiatric disorders presenting with seizure prodrome after 15 days of vaginal bleeding concernign to her for another miscarriage. Patient is overall very ignorant of her medical conditions, medical dosages, and general condition. All of her labs here are WNl and she is not chemically . Furthermore, her TVUS does not demonstrate any evidence of IUP or other gynecologic issues. Vaginal exam demonstrates a closed cervix with small blood at he external OS. This was likely regular/ irregular menses vs. complete . Patient is unsure of her Topamax dosage and multiple calls to her mom [phone]), Dad ([phone]), and [facility] did not result in answers and [facility] record of topamam[facility] as a medication. We decided to give her 25 topamax and discharge her with PCP follow up and to fill her prescription of topamax. Furthermore, she admits to clonazepam usage for her anxiety, so it is unlikely that she will seize. She remained stable throughout her stay in our ED. 09/16/17 02:14 *DC/Admit/Observation/Transfer Diagnosis at time of Disposition: Vaginal bleeding Epilepsy Qualifiers: Epilepsy type: unspecified Intractability: not intractable Status epilepticus: without status epilepticus Qualified Code(s): G40.909 - Epilepsy, unspecified, not intractable, without status epilepticus - Discharge Dispostion Disposition: HOME Condition at time of disposition: Improved Decision to Admit order: No - Referrals Referrals: Lauren Kwok [Primary Care Provider] - - Patient Instructions Printed Discharge Instructions: DI for Seizure Disorder -- Adult Additional Instructions: Please fill your Topamax prescription tomorrow. Please follow up with your physician as early as possible. Please consider using an IU or the Depot shot to prevent further pregnancies as you are very high risk. Please return to the ED if you have new or worsening symptoms. - Post Discharge Activity
[2017-09-16 00:05] VITALS: BP 96/79; PULSE 78; TEMP 98.4; BMI 28.2
--- NOTE | 2017-09-16 00:07 | PDOC ---
Attending Attestation - Resident Resident Name: Radha Cullenjeffbranden - ED Attending Attestation I have performed the following: I have examined & evaluated the patient, The case was reviewed & discussed with the resident, I agree w/resident's findings & plan, Exceptions are as noted - Medical Decision Making 09/16/17 00:07 I, Dr. Hortencia Tovar, DO, attest that this document has been prepared under my direction and personally reviewed by me in its entirety. I further attest, that it accurately reflects all work, treatment, procedures and medical decision -making performed by me. 09/16/17 00:48 a/p: 27yo female with prodromal symptoms - leg weakness for her seizures presented via ambulance -also vag bleeding x 2 weeks - heavy at the beginning wearing 6 pads a day - passed clot and tissue, lower abd cramping pt states vag bleeding similar to prior miscarriage -now with spotting -will send labs, tvus, ua -will discuss med list with the patients parents - pt follows with neuro and ob in [place], but is unsure of topamax dose or klonopin dose -pt took klonopin today, but was out of her topamax when she felt her prodrome of seizure activity -will refill topamax and give dose once dose is verified by fam <Hortencia Tovar - Last Filed: 09/16/17 00:47> - HPI HPI: 09/16/17 01:02 27 year old female with history of seizure disorder, multiple spontaneous abortions, polysubstance abuse, PTSD, and bipolar disorder, brought in by EMS for bilateral leg weakness which she states is consistent with her seizure prodrome this evening. She states she took Klonopin today, and normally takes Topamax PRN as needed for seizures, but ran out of Topamax today. She denies any actual seizure activity today. The patient also notes approximately 2 weeks of progressively worsening vaginal bleeding and suprapubic cramping. No fever or chills. No nausea, vomiting, or diarrhea. States she feels generally weak on evaluation. Patient is a poor historian. Neuro is in [place] - Physicial Exam PE: 09/16/17 01:05 Constitutional: Awake, alert, oriented. No acute distress. Head: Normocephalic. Atraumatic Eyes: PERRL. EOMI. Conjunctivae are not pale. ENT: Mucous membranes are moist and intact. Posterior pharynx without exudates or erythema. Uvula midline. Neck: Supple. Full ROM. No lymphadenopathy. Cardiovascular: Regular rate. Regular rhythm. S1, S2 regular. Distal pulses are 2+ and symmetric. Pulmonary/Chest: No evidence of respiratory distress. Clear to auscultation bilaterally No wheezing, rales or rhonchi. Abdominal: Soft and non-distended. There is no tenderness. No rebound, guarding or rigidity. No organomegaly. No palpable masses. Good bowel sounds. Back: No CVA tenderness. Musculoskeletal: No edema. No cyanosis. No clubbing. Full range of motion in all extremities. Nocalf tenderness. Radial/pedal pulses are intact and 2+ bilaterally Skin: Skin is warm and dry. No petechiae. No purpura. Neurological: Alert and oriented to person, place, and time. Cranial nerves II -XII are grossly intact. Normal speech. Strength is grossly symmetric. No sensory deficits. Psychiatric: Good eye contact. Normal interaction, affect and behavior. - Medical Decision Making 09/16/17 01:06 Documentation prepared by Rahel Pitno, acting as medical library assistant for Hortencia Tovar DO. <Rahel Pinto - Last Filed: 09/16/17 01:06> Heart Score/ECG Review - ECG Intrepretation Comment:: 09/16/17 00:47 sinus at 64, nl axis, nl interval, no acute st/t wave findings <Hortencia Tovar - Last Filed: 09/16/17 00:47>
[2017-09-16 01:19] LABS: BASO % 1.3 % (0-2.0); EOS % 2.9 % (0-4.5); HEMATOCRIT 40.6 % (32.4-45.2); HEMOGLOBIN 13.5 GM/dL (10.7-15.3); LYMPH % 50.2 % (8-40); MCH 29.6 pg (25.7-33.7); MCHC 33.2 g/dl (32.0-36.0); MEAN CELL VOLUME 89.4 fl (80-96); MEAN PLT VOLUME 7.9 fl (7.5-11.1); NEUT % 40.6 % (42.8-82.8); PLATELET COUNT 247 K/MM3 (134-434); RBC 4.55 M/mm3 (3.60-5.2); RDW 14.9 % (11.6-15.6); WHITE BLOOD COUNT 4.2 K/mm3 (4.0-10.0)
[2017-09-16 01:37] LABS: ANION GAP 6 (8-16); BILIRUBIN,TOTAL 0.3 mg/dL (0.2-1.0); BLOOD UREA NITROGEN 21 mg/dL (7-18); CALCIUM 8.9 mg/dL (8.5-10.1); CHLORIDE 109 mmol/L (98-107); CO2 26 mmol/L (21-32); GLUCOSE,RANDOM 73 mg/dL (74-106); SGOT/AST 17 U/L (15-37); SGPT/ALT 16 U/L (12-78); SODIUM 141 mmol/L (136-145)
[2017-09-16 01:38] LABS: INR 1.05 (0.82-1.09); PROTHROMBIN TIME (PATIENT) 11.9 SEC (9.7-13.0)
[2017-09-16 01:40] LABS: ALK PHOS 60 U/L (45-117)
[2017-09-16] MEDS ORDERED: TOPIRAMATE 25 MG TABLET (FP) PO ONE (02:04)
[2017-09-16] MEDS ORDERED: TOPIRAMATE 25 MG TABLET (FP) ONE (02:38)
--- NOTE | 2017-09-16 12:06 | EKG ---
Test Reason : Blood Pressure : / mmHG Vent. Rate : 064 BPM Atrial Rate : 064 BPM P-R Int : 168 ms QRS Dur : 104 ms QT Int : 430 ms P-R-T Axes : 054 041 061 degrees QTc Int : 443 ms NORMAL SINUS RHYTHM NORMAL ECG WHEN COMPARED WITH ECG OF 30-SEP-2016 21:55, T WAVE INVERSION NO LONGER EVIDENT IN ANTERIOR LEADS Confirmed by KRISTAL LLANOS, ROBERT ([id number]) on 09/16/2017 12:05:49 PM Referred By: Confirmed By:ROBERT GIRALDO MD
== END 2017-09-16 02:58 | disposition home or self-care (01) ==
LOC: JER 23:54
DX: G40.909 Epilepsy, unspecified, not intractable, without status epilepticus (principal); N93.9 Abnormal uterine and vaginal bleeding, unspecified; J45.909 Unspecified asthma, uncomplicated; K21.9 Gastro-esophageal reflux disease without esophagitis; F17.210 Nicotine dependence, cigarettes, uncomplicated; F10.10 Alcohol abuse, uncomplicated; F11.10 Opioid abuse, uncomplicated; F14.10 Cocaine abuse, uncomplicated; F31.9 Bipolar disorder, unspecified; F41.9 Anxiety disorder, unspecified
CPT/HCPCS: 36415; 76856-TC; 80053; 83605; 84702; 85025; 85610; 86850; 86900; 86901; 93005; 93010; 99283-25

== ENCOUNTER 2020-09-25 22:55 | Inpatient (IN) | payer OTHER ==
[2020-09-25 23:28] VITALS: BP 109/66; PULSE 80; TEMP 98.6; BMI 27.5
[2020-09-26] MEDS ORDERED: ACETAMINOPHEN 1000 MG/100 ML VIAL (NON FORMULARY) IVPB ONE (02:13)
[2020-09-26] MEDS ORDERED: SODIUM CHLORIDE 0.9% 500 ML INFUS.BAG IV ONE (02:13)
[2020-09-26] MEDS ORDERED: ACETAMINOPHEN INJECTION 100 ML IVPB ONE (02:16)
[2020-09-26] MEDS ORDERED: AZITHROMYCIN IVPB 500 MG in DEXTROSE 5%-WATER - 250 ML IVPB ONE (04:39)
[2020-09-26] MEDS ORDERED: CEFOXITIN SODIUM 2 GM in DEXTROSE 5%-WATER - 100 ML IVPB ONE (04:39)
[2020-09-26] MEDS ORDERED: AZITHROMYCIN IVPB 500 MG/250 ML BAG IVPB ONE (04:50)
[2020-09-26 04:57] LABS: BASO % 1.5 % (0-2.0); EOS % 2.2 % (0-4.5); HEMATOCRIT 35.9 % (32.4-45.2); HEMOGLOBIN 12.3 GM/dL (10.7-15.3); LYMPH % 33.3 % (8-40); MCH 31.1 pg (25.7-33.7); MCHC 34.4 g/dl (32.0-36.0); MEAN CELL VOLUME 90.3 fl (80-96); MEAN PLT VOLUME 7.7 fl (7.5-11.1); PLATELET COUNT 237 10^3/uL (134-434); RBC 3.97 M/mm3 (3.60-5.2); RDW 13.7 % (11.6-15.6); WHITE BLOOD COUNT 5.1 K/mm3 (4.0-10.0)
[2020-09-26 05:15] LABS: CHLORIDE 107 mmol/L (98-107); SODIUM 138 mmol/L (136-145)
[2020-09-26 05:17] LABS: CALCIUM 8.9 mg/dL (8.5-10.1)
[2020-09-26 05:18] LABS: ALBUMIN 3.6 g/dl (3.4-5.0); ANION GAP 13 MMOL/L (8-16); BLOOD UREA NITROGEN 7.3 mg/dL (7-18); CO2 18 mmol/L (21-32); GLUCOSE,RANDOM 53 mg/dL (74-106)
[2020-09-26 05:21] LABS: CREATININE 0.5 mg/dL (0.55-1.3); SGOT/AST 17 U/L (15-37); SGPT/ALT 14 U/L (13-61)
[2020-09-26 05:22] LABS: BILIRUBIN,TOTAL 0.5 mg/dL (0.2-1); TOT PROT 7.3 g/dl (6.4-8.2)
[2020-09-26 05:24] LABS: ALK PHOS 45 U/L (45-117)
[2020-09-26] MEDS ORDERED: CEFOXITIN SODIUM 2 GM in DEXTROSE 5%-WATER 100 ML IVPB ONE (05:30)
[2020-09-26 05:44] LABS: PH,URINE 5.5 (5.0-8.0); URINE APPEARANCE CLEAR; URINE BILIRUBIN NEGATIVE (NEGATIVE); URINE COLOR YELLOW; URINE GLUCOSE (UA) NEGATIVE (NEGATIVE); URINE KETONE 4+ (NEGATIVE); URINE LEUK ESTERASE NEGATIVE (NEGATIVE); URINE NITRITE NEGATIVE (NEGATIVE); URINE PROTEIN TRACE (NEGATIVE)
[2020-09-26] MEDS ORDERED: DEXTROSE 50%-WATER - 25 GM/50 ML VIAL IVPUSH ONE (06:12)
[2020-09-26] MEDS ORDERED: DEXTROSE 50%-WATER 25 GM/50 ML DISP.SYRIN ONE (06:13)
[2020-09-26] MEDS ORDERED: PRENATAL VITAMINS W/ FOLIC ACID TABLET (FP) PO SCH (10:00)
== END 2020-09-26 14:00 | disposition left against medical advice (07) | DRG 833 ==
LOC: JER 22:55 → JERBED 09-26 05:49
PROVIDERS: ADMIT Internal Medicine
DX: O26.891 Other specified pregnancy related conditions, first trimester (principal); Z3A.12 12 weeks gestation of pregnancy; N93.9 Abnormal uterine and vaginal bleeding, unspecified
CPT/HCPCS: 36415; 76801-TC; 80053; 81003; 82550; 82962; 84484; 84702; 85025; 86850; 86900; 86901; 87086; 93005; 93010; 99285-25; C9803; J0131; U0003; U0005

== ENCOUNTER 2021-05-19 11:53 | Emergency (ER) | payer OTHER ==
[2021-05-19 12:30] VITALS: BMI 29.0
[2021-05-19 13:45] LABS: BASO % 1.2 % (0-2.0); EOS % 1.7 % (0-4.5); HEMATOCRIT 27.9 % (32.4-45.2); LYMPH % 37.5 % (8-40); MCH 26.7 pg (25.7-33.7); MCHC 32.3 g/dl (32.0-36.0); MEAN CELL VOLUME 82.6 fl (80-96); MEAN PLT VOLUME 7.2 fl (7.5-11.1); MONO % 4.6 % (3.8-10.2); PLATELET COUNT 348 10^3/uL (134-434); RBC 3.38 M/mm3 (3.60-5.2); RDW 18.3 % (11.6-15.6); WHITE BLOOD COUNT 5.3 K/mm3 (4.0-10.0)
[2021-05-19 16:59] LABS: URINE APPEARANCE CLEAR; URINE BILIRUBIN NEGATIVE (NEGATIVE); URINE COLOR YELLOW; URINE GLUCOSE (UA) NEGATIVE (NEGATIVE); URINE KETONE 2+ (NEGATIVE); URINE LEUK ESTERASE NEGATIVE (NEGATIVE); URINE NITRITE NEGATIVE (NEGATIVE); URINE PROTEIN NEGATIVE (NEGATIVE); URINE UROBILINOGEN 0.2 mg/dL (0.2-1.0)
[2021-05-19 17:14] VITALS: BP 108/57; PULSE 78; TEMP 98.2
[2021-05-19] MEDS ORDERED: DOXYCYCLINE HYCLATE 100 MG CAPSULE PO ONE ×2 (19:22→19:33)
[2021-05-19] MEDS ORDERED: KETOROLAC TROMETHAMINE 60 MG/2 ML VIAL IM ONE (19:22)
[2021-05-19] MEDS ORDERED: LIDOCAINE HCL 2% (20ML MULTI-DOSE VIAL) ONE (19:33)
[2021-05-19] MEDS ORDERED: cefTRIAXone SODIUM 1 GM VIAL ONE (19:34)
[2021-05-19] MEDS ORDERED: KETOROLAC TROMETHAMINE 30 MG/1 ML VIAL ONE (19:34)
== END 2021-05-19 22:41 | disposition home or self-care (01) ==
LOC: JER 11:53
PROC: 3E02329 Introduction of Other Anti-infective into Muscle, Percutaneous Approach (ICD-10-PCS; principal; 2021-05-19)
PROC: 3E0233Z Introduction of Anti-inflammatory into Muscle, Percutaneous Approach (ICD-10-PCS; 2021-05-19)
DX: N73.9 Female pelvic inflammatory disease, unspecified (principal); F14.20 Cocaine dependence, uncomplicated; F11.20 Opioid dependence, uncomplicated
CPT/HCPCS: 36415; 76830-TC; 81003; 84703; 85025; 86850; 86900; 86901; 87070; 87077; 87086; 87205; 87491; 87591; 99284-25